=== PATIENT | female | born 1995 | race Caucasian/White ===

== ENCOUNTER 2020-03-06 20:01 | Emergency (ER) | payer BC ==
[~2020-03-06] VITALS: Ht 157.5 cm; Wt 65.8 kg
[2020-03-06 20:49] LABS: ABSOLUTE BASOPHILS 0.1 thou/uL (0.0-0.2); ABSOLUTE EOSINOPHILS 0.5 thou/uL (0.0-0.7); ABSOLUTE LYMPHOCYTES 4.2 thou/uL (0.8-5.3); ABSOLUTE MONOCYTES 0.7 thou/uL (0.0-1.2); ABSOLUTE NEUTROPHILS 4.5 thou/uL (1.6-8.1); BASOPHILS 1.1 %; EOSINOPHILS 4.9 %; HEMATOCRIT 43.4 % (37.0-47.0); HEMOGLOBIN 14.4 gm/dL (12.0-15.0); LYMPHOCYTES 41.9 %; MCH 29.8 pg (26.0-34.0); MCHC 33.2 g/dL (28.0-37.0); MCV 89.6 fL (80.0-100.0); MONOCYTES 7.2 %; MPV 8.8 fl. (7.2-11.1); NUCLEATED RBCS 0 /100WBC; PLATELET COUNT* 288 thou/uL (150-400); POLYS 44.9 %; RBC 4.84 mil/uL (4.20-5.00); RDW-CV 12.8 % (10.5-14.5)
[2020-03-06 20:52] LABS: CALCIUM 8.5 mg/dL (8.5-10.1); CREATININE 0.8 mg/dL (0.6-1.3)
[2020-03-06 20:56] LABS: ALBUMIN 3.9 g/dL (3.4-5.0); TOTAL BILIRUBIN 0.1 mg/dL (<0.1-1.0); TOTAL PROTEIN 7.9 g/dL (6.4-8.2)
[2020-03-06 22:02] LABS: URINE BILIRUBIN NEGATIVE (Negative); URINE BLOOD TRACE (Negative); URINE CLARITY CLEAR; URINE COLOR YELLOW; URINE GLUCOSE-RANDOM NEGATIVE (Negative); URINE KETONES NEGATIVE (Negative); URINE LEUKOCYTES-REFLEX NEGATIVE (Negative); URINE NITRITE-REFLEX NEGATIVE (Negative); URINE PROTEIN NEGATIVE (Negative); URINE UROBILINOGEN 0.2 E.U./dl (0.2-1.0)
[2020-03-06 23:28] VITALS: BP 95/61
--- NOTE | 2020-03-08 11:37 | EKG ---
[place] [address] ELECTROCARDIOGRAM REPORT Name: SALBADOR HARRIS Room: [facility]#: [id number] Admission: 03/06/20 Attend Phys: Discharge: 03/06/20 Date of : 89 Date of Service: 03/06/202003 Report #: [id number] THIS REPORT FOR: //name// [facility] ED Test Date: 2020-03-06 Test Time: 20:04:37 Pat Name: SALBADOR HARRIS Department: Room: Gender: F Instructional Support Technician: VINOD : 1995 Requested By: Blanka Arteaga Order Number: [id number] Aj MD: Mark Cardoza Measurements Intervals [place] Rate: 72 P: 52 NC: 122 QRS: 63 QRSD: 90 T: 31 QT: 358 QTc: 392 Interpretive Statements Sinus rhythm Borderline Q waves in inferior leads No previous ECG available for comparison Electronically Signed On 03-08-2020 11:37:12 PRESETTER OPERATOR by Mark Cardoza [email or web address] <ELECTRONICALLY SIGNED> By: Mark Cardoza MD, [facility] 03/08/20 1137 03 03 Mark Cardoza MD, FACC /EPI
== END 2020-03-06 23:28 | disposition home or self-care (01) ==
LOC: M.ERS 20:01
PROVIDERS: Emergency Medicine
DX: R07.9 Chest pain, unspecified (principal); Z90.49 Acquired absence of other specified parts of digestive tract; Z88.6 Allergy status to analgesic agent